=== PATIENT | female | born 1960 | race Caucasian/White ===

== ENCOUNTER 2018-02-24 05:50 | Day surgery (SDC) | payer OTHER ==
[~2018-02-24 05:50] MED LIST: OMEPRAZOLE20 M1 PO
== END 2018-02-24 17:46 | disposition home or self-care (01) ==
LOC: CIR.AMB 05:50
DX: C54.1 Malignant neoplasm of endometrium (principal); N85.01 Benign endometrial hyperplasia

== ENCOUNTER 2021-12-08 05:20 | Day surgery (SDC) | payer OTHER ==
[~2021-12-08] VITALS: Ht 162.6 cm; Wt 79.4 kg
[2021-12-08] MEDS ORDERED: NEURONTIN300 MG PO (08:49)
[2021-12-08] MEDS ORDERED: DERMOPLAST PAIN78 GM TOP (08:49)
[2021-12-08] MEDS ORDERED: PERCOCET 5-3251 EACH PO (08:49)
== END 2021-12-08 15:20 | disposition home or self-care (01) ==
LOC: CIR.AMB 05:20
PROVIDERS: ATTEND Surgery
DX: K64.2 Third degree hemorrhoids (principal); Z20.822 Contact with and (suspected) exposure to COVID-19; K21.9 Gastro-esophageal reflux disease without esophagitis